=== PATIENT | female | born 1995 | race American Indian/Alaskan Native ===

== ENCOUNTER 2017-10-03 21:18 | Emergency (ER) | payer MEDICAID ==
[2017-10-03 22:40] VITALS: BP 117/70
== END 2017-10-04 03:50 | disposition left against medical advice (07) ==
LOC: ED 21:18
DX: L50.9 Urticaria, unspecified (principal); R10.2 Pelvic and perineal pain; Z53.21 Procedure and treatment not carried out due to patient leaving prior to being seen by health care provider
CPT/HCPCS: 36415; 84702; 84703

== ENCOUNTER 2018-05-13 17:29 | Outpatient (CLI) | payer MEDICAID ==
--- NOTE | 2018-05-13 21:01 | Ultrasound Report ---
FINAL REPORT EXAM: US OB FOLLOW UP HISTORY: well being, sharad, efw, decreased moveme TECHNIQUE: Real-time sonography was performed of the gravid uterus and images are submitted for interpretation. PRIORS: None. FINDINGS: There is a single fetus in the uterus in a cephalic presentation. The placenta is anterior and the os is clear. The amniotic fluid index is normal at 10.8 cm. The heart is beating at a rate of 138 beats per minute. Biometric measurements give an estimated gestational age of 38 weeks 6 days Estimated weight: 3,567 grams or 7 pounds 14 ounces. This is at the 62 percentile for clinical age. Biophysical profile: Breathin Movement: 2 Tone: 2 Fluid volume: 2 IMPRESSION: 1. Single, live intrauterine gestation, estimated gestational age 38 weeks 6 days for an estimated date of confinement of 05/21/2018. 2. Normal biophysical profile, 04/23
--- NOTE | 2018-05-13 21:02 | Ultrasound Report ---
FINAL REPORT EXAM: US OB BPP WO NON-STRESS HISTORY: well being, sharad, efw, decreased moveme TECHNIQUE: Real-time sonography was performed of the gravid uterus and images are submitted for interpretation. PRIORS: None. FINDINGS: There is a single fetus in the uterus in a cephalic presentation. The placenta is anterior and the os is clear. The amniotic fluid index is normal at 10.8 cm. The heart is beating at a rate of 138 beats per minute. Biometric measurements give an estimated gestational age of 38 weeks 6 days Estimated weight: 3,567 grams or 7 pounds 14 ounces. This is at the 62 percentile for clinical age. Biophysical profile: Breathin Movement: 2 Tone: 2 Fluid volume: 2 IMPRESSION: 1. Single, live intrauterine gestation, estimated gestational age 38 weeks 6 days for an estimated date of confinement of 05/21/2018. 2. Normal biophysical profile, 04/23
[2018-05-15 06:43] VITALS: BP 122/64
== END 2018-05-13 20:41 | disposition home or self-care (01) ==
LOC: TRG 17:29
PROVIDERS: ATTEND Obstetrics & Gynecology
DX: O47.1 False labor at or after 37 completed weeks of gestation (principal); Z3A.39 39 weeks gestation of pregnancy
CPT/HCPCS: 59025; 76816; 76819

== ENCOUNTER 2018-05-14 16:03 | Inpatient (IN) | payer MEDICAID ==
[2018-05-14 20:07] LABS: Basophils % (Auto) 0.2 % (0.0-1.8); Eosinophils # (Auto) 0.1 K/mm3 (0.0-0.4); Eosinophils % (Auto) 0.7 % (0.0-4.3); Hematocrit 33.9 % (30.3-42.9); Hemoglobin 11.5 gm/dl (10.1-14.3); Lymphocytes # (Auto) 1.9 K/mm3 (1.2-5.4); Lymphocytes % (Auto) 22.3 % (13.4-35.0); Mean Corpuscular HGB Conc 34 % (30-34); Mean Corpuscular Hemoglobin 29 pg (28-32); Mean Corpuscular Volume 87 fl (79-97); Monocytes # (Auto) 0.6 K/mm3 (0.0-0.8); Monocytes % (Auto) 7.3 % (0.0-7.3); Platelet Count 219 K/mm3 (140-440); Red Cell Distribution Width 14.9 % (13.2-15.2)
[2018-05-14] MEDS ORDERED: STADOL IV PRN (21:23)
[2018-05-14] MEDS ORDERED: SUBLIMAZE IV PRN (21:24)
[2018-05-14] MEDS ORDERED: LACTATED RINGERS 1,000 ML IV SCH (22:00)
[2018-05-14] MEDS ORDERED: PITOCin/NS 30 UNIT/500ML 30 UNITS/500 ML BAG IV SCH (22:00)
[2018-05-14] MEDS ORDERED: PITOCin/NS 20 UNIT/1000ML DRIP 20 UNITS/1,000 ML BAG IV SCH (22:00)
[2018-05-15] MEDS ORDERED: ZOFRAN IV PRN (01:46)
[2018-05-15] MEDS ORDERED: BENADRYL IV PRN (01:46)
[2018-05-15] MEDS ORDERED: NARCAN 2 MG/2 ML IV PRN (01:46)
[2018-05-15] MEDS ORDERED: NUBAIN IV PRN (01:46)
--- NOTE | 2018-05-15 01:54 | History and Physical Report ---
History of Present Illness Date of examination: 05/15/18 Date of admission: 05/14/18 18:59 Chief complaint: My water broke at 3:15PM on 05/14, and I am having labor pains History of present illness: Early entry to care, 1st trimester complicated by a UTI (treated with Macrobid) and Vitamin D Insufficiency; 3rd trimester complicated by Shortness of breath and abnormal maternal cardiac rhythm, had normal cardiac work-up at [facility]. Past History Past Medical History: no pertinent history Past Surgical History: no surgical history PROMOTIONS REPRESENTATIVE History: chlamydia Family/Genetic History: diabetes, cancer Social history: no significant social history, single - Obstetrical History Expected Date of Delivery: 05/20/18 Actual Gestation: 39 Week(s) 2 Day(s) : 2 Para: 1 Hx # Term Pregnancies: 1 Number of Living Children: 1 #1 Gender: Male year: 2[age][birth year] Birthweight: 3.232 kg Method of Delivery: Vaginal Gestational age at delivery: 39 Complications: none Medications and Allergies Allergies Allergy/AdvReac Type Severity Reaction Status Date / Time No Known Allergies Allergy Verified 05/14/18 23:35 Home Medications Medication Instructions Recorded Confirmed Last Taken Type Cholecalciferol (Vitamin D3) 1 tab PO DAILY 05/14/18 05/14/18 05/13/18 21:00 History [Vitamin D3] Ferrous Sulfate [Feosol 325 MG tab] 1 tab PO DAILY 05/14/18 05/14/18 05/13/18 09 :00 History 1 Vits96/Iron Fum/Folic 1 tab PO DAILY 05/14/18 05/14/18 05/13/18 21:00 History [ Tablet] 1 Active Meds: Active Medications Butorphanol Tartrate (Stadol) 2 mg IV Q2H PRN PRN Reason: Labor Pain Last Admin: 05/15/18 00:30 Dose: 2 mg Diphenhydramine HCl (Benadryl) 12.5 mg IV Q2H PRN PRN Reason: Itching Ephedrine Sulfate (Ephedrine Sulfate) 10 mg IV Q2M PRN PRN Reason: Hypotension Fentanyl (Sublimaze) 100 mcg IV Q2H PRN PRN Reason: Labor Pain Lactated Ringer's (Lactated Ringers) 1,000 mls @ 125 mls/hr IV DIRECT URIEL Last Admin: 05/15/18 00:41 Dose: 125 mls/hr Oxytocin/Sodium Chloride (Pitocin/Ns 20 Unit/1000ml Drip) 20 units in 1,000 mls @ 125 mls/hr IV DIRECT URIEL Oxytocin/Sodium Chloride (Pitocin/Ns 30 Unit/500ml) 30 units in 500 mls @ 2 mls /hr IV TITR URIEL; Protocol Fentanyl/Bupivacaine/Sodium Chlor (Fentanyl-Bupiv 2 Mcg/Ml-0.125%) 200 mcg in 100 mls @ 12 mls/hr EPIDURAL TITR URIEL; Protocol Nalbuphine HCl (Nubain) 2.5 mg IV Q2H PRN PRN Reason: Itching Naloxone HCl (Narcan 2 Mg/2 Ml) 0.2 mg IV Q5M PRN PRN Reason: Respiratory sedation Ondansetron HCl (Zofran) 4 mg IV Q8H PRN PRN Reason: Nausea And Vomiting Review of Systems All systems: negative - Vital Signs Vital signs: Vital Signs Resp 20 05/14/18 18:00 Temp Pulse Resp BP Pulse Ox 98.1 F 71 16 121/59 05/14/18 21:29 05/14/18 21:12 05/15/18 00:30 05/14/18 21:12 - Physical Exam Breasts: Positive: normal Cardiovascular: Regular rate Lungs: Positive: Clear to auscultation, Normal air movement Abdomen: Positive: normal appearance, soft, normal bowel sounds Genitourinary (Female): Positive: normal external genitalia, normal perenium Uterus: Positive: enlarged Anus/Rectum: Positive: normal perianal skin - Obstetrical FHR: category 1 Uterine Contraction Monitor Mode: External Cervical Dilatation: 5 Cervical Effacement Percentage: 80 station: -1 Uterine Contraction Pattern: Regular Uterine Tone Measurement Phase: Resting Uterine Contraction Intensity: Moderate Results Result Diagrams: 05/14/18 19:44 All other labs normal. Assessment and Plan A: IUP @ 39 2/7 Weeks Category I Tracing SROM GBS Negative P: Admit to L&D per Routine Orders Prepare for Epidural Anesthesia Expectant Management
[2018-05-15] MEDS ORDERED: fentaNYL-BUPIV 2 MCG/ML-0.125% 200 MCG/100 ML BAG EPIDURAL SCH (02:00)
[2018-05-15] MEDS ORDERED: BRETHINE IVP PRN (02:32)
[2018-05-15] MEDS ORDERED: NARCAN 0.4 MG/1 ML IV PRN (02:32)
[2018-05-15] MEDS ORDERED: BRETHINE SUB-Q PRN (02:32)
[2018-05-15] MEDS ORDERED: XYLOCAINE 2% INFILTRATI ONE (02:32)
[2018-05-15] MEDS ORDERED: POLYCILLIN/NS 2 GM/100 ML 2 GM/100 ML BAG IV ONE (02:32)
[2018-05-15] MEDS ORDERED: MINERAL OIL PO PRN (02:32)
[2018-05-15] MEDS ORDERED: LACTATED RINGERS 1,000 ML IV SCH (03:00)
[2018-05-15] MEDS ORDERED: BENADRYL PO PRN (05:12)
[2018-05-15] MEDS ORDERED: PHENERGAN PO PRN (05:12)
--- NOTE | 2018-05-15 05:19 | Procedure Note ---
OB Delivery Note - Delivery Date of Delivery: 05/15/18 (0501) Surgeon: STACY HOWARD Estimated blood loss: other (150) - Vaginal Delivery presentation: vertex Intrapartum events: mult. late decelerations, mult.variable deceleratio Delivery induction: none Delivery monitor: external FHT, external uterine Route of delivery: Delivery placenta: spontaneous Delivery cord: nuchal cord Episiotomy: none Delivery laceration: none Anesthesia: epidural Delivery comments: of a live 6'13 male infant over a intact perineum under epidural anesthesia with Apgars of 8 and 9 at 0501 on 05/15/2018. Nuchal cord x 1 easily manually reduced on the perineum prior to delivery of the anterior shoulder. directly to maternal abd/chest, skin to skin contact. Delayed cord clamping and cutting; Cord cut by the father of the baby. Spontaneous delivery of placenta complete and intact with [place] side presenting at 0507. Fundus is firm and midline located 4 below the U. Lochia is scant. - Infant A at 1 minute: 8 at 5 minutes: 9 Gender: Male (')
[2018-05-15] MEDS ORDERED: SODIUM CHLORIDE FLUSH SYRINGE 10 ML IV NR (06:00)
[2018-05-15] MEDS ORDERED: AMPICILLIN/NS 1 GM/50 ML 1 GM/50 ML BAG IV SCH (06:33)
[2018-05-15] MEDS ORDERED: PRENATAL VITAMIN PO SCH (10:00)
[2018-05-15] MEDS ORDERED: LANSINOH TP ONE (10:12)
[2018-05-15] MEDS: MOTRIN PO SCH ×3 (10:15→23:51)
[2018-05-15] MEDS: NORCO 5/325 PO PRN ×2 (12:30→20:16)
[2018-05-15 19:13] LABS: Hematocrit 35.5 % (30.3-42.9); Hemoglobin 11.8 gm/dl (10.1-14.3)
[2018-05-16] MEDS: MOTRIN PO SCH ×2 (05:21→23:59)
--- NOTE | 2018-05-16 08:15 | Progress Note ---
Assessment and Plan A: PPD#1 - stable P: Discharge home today, if baby goes Subjective - Subjective Date of service: 05/16/18 Patient reports: appetite normal [place]: doing well Objective - Vital Signs Latest vital signs: Vital Signs Temp Pulse Resp BP Pulse Ox 05/16/18 05:21 18 05/15/18 23:51 20 05/15/18 20:16 20 05/15/18 17:19 98.4 F 70 18 112/67 96 05/15/18 12:29 98.4 F 59 L 18 119/61 100 Intake and Output 05/15/18 05/16/18 05/16/18 22:59 06:59 14:59 Intake Total 360 Balance 360 Intake: Oral 360 Other: Total, Intake Amount 360 # Voids Void 1 - Exam Breasts: Present: deferred Cardiovascular: Present: Regular rate Lungs: Present: Clear to auscultation Abdomen: Present: soft Vulva: both: normal Uterus: Present: fundal height below umbilicus Extremities: Present: normal Deep Tendon Reflex Grade: Normal +2
--- NOTE | 2018-05-16 08:16 | Discharge Summary ---
Providers - Providers Date of Admission: 05/14/18 18:59 Date of discharge: 05/16/18 Attending physician: LUCIO JONES MD Primary care physician: LUCIO JONES MD Hospitalization Reason for admission: active labor Delivery: Episiotomy: none Laceration: none Discharge diagnosis: IUP at term delivered baby: male Condition at discharge: Good Disposition: DC-01 TO HOME OR SELFCARE Plan - Provider Discharge Summary Activity: routine, no sex for 6 weeks, no strenuous exercise Additional instructions: [] Smoking cessation referral if applicable(refer to patient education folder for contact #) [] Refer to [facility]'s [facility] Booklet Call your doctor immediately for: * Fever > 100.5 * Heavy vaginal bleeding ( >1 pad per hour) * Severe persistent headache * Shortness of breath * Reddened, hot, painful area to leg or breast * Drainage or odor from incision. * Keep incision clean and dry at all times and follow doctor's instructions regarding bathing/showering - Follow up plan Follow up: LUCIO JONES MD [Primary Care Provider] - 6 Weeks
[2018-05-17] MEDS ORDERED: LANSINOH TP PRN (00:56)
[2018-05-17] MEDS: NORCO 5/325 PO PRN ×2 (01:26→14:40)
[2018-05-17] MEDS: MOTRIN PO SCH (06:38)
[2018-05-17 14:40] VITALS: BP 122/75
== END 2018-05-17 15:30 | disposition home or self-care (01) | DRG 775 ==
LOC: TRG 16:03 → LD 18:59 → OB 05-15 07:40
PROVIDERS: ADMIT Obstetrics & Gynecology; ATTEND Obstetrics & Gynecology
PROC: 10E0XZZ Delivery of Products of Conception, External Approach (ICD-10-PCS; principal; 2018-05-15)
PROC: 3E0R3BZ Introduction of Anesthetic Agent into Spinal Canal, Percutaneous Approach (ICD-10-PCS; 2018-05-15)
PROC: 00HU33Z Insertion of Infusion Device into Spinal Canal, Percutaneous Approach (ICD-10-PCS; 2018-05-15)
DX: O69.1XX0 Labor and delivery complicated by cord around neck, with compression, not applicable or unspecified (principal); O76 Abnormality in fetal heart rate and rhythm complicating labor and delivery; Z37.0 Single live birth; Z83.3 Family history of diabetes mellitus; Z3A.39 39 weeks gestation of pregnancy; Z80.9 Family history of malignant neoplasm, unspecified; Z79.899 Other long term (current) drug therapy
CPT/HCPCS: 36415; 85014; 85018; 85025; 86850; 86900; 86901; 99211; A6250; G0463; J0290; J0595; J2590; J7120

== ENCOUNTER 2022-05-29 22:30 | Emergency (ER) | payer SELFPAY ==
[2022-05-30 03:13] VITALS: BP 123/67
== END 2022-05-30 07:00 | disposition left against medical advice (07) ==
LOC: ED 22:30
DX: S09.90XA Unspecified injury of head, initial encounter (principal); Z53.21 Procedure and treatment not carried out due to patient leaving prior to being seen by health care provider; X58.XXXA Exposure to other specified factors, initial encounter; Y93.89 Activity, other specified; Y92.89 Other specified places as the place of occurrence of the external cause; Y99.8 Other external cause status